=== PATIENT | male | born 1965 | race Caucasian/White ===

== ENCOUNTER 2017-04-02 20:14 | Inpatient (IN) | payer MEDICARE, MEDICAID ==
[~2017-04-02] VITALS: Ht 182.9 cm; Wt 112.0 kg
[2017-04-02] MEDS ORDERED: HALOPERIDOL LACTATE 5 MG/ML VIAL IM ONE (20:30)
[2017-04-02] MEDS ORDERED: LORazepam 2 MG/ML VIAL IM ONE (20:30)
[2017-04-02] MEDS ORDERED: DiphenhydrAMINE HCL 50 MG/ML VIAL IM ONE (20:30)
[2017-04-02 20:48] LABS: GLUCOSE,POINT OF CARE 156 MG/DL (70-110)
[2017-04-02 22:10] LABS: BASOPHILS % (AUTO) 0.2 % (0.0-2.0); EOSINOPHILS % (AUTO) 0.4 % (1.0-6.0); HEMATOCRIT 41.5 % (41-53); HEMOGLOBIN 14.1 g/dL (13.5-17.5); LYMPHOCYTES # (AUTO) 0.7 K/uL (1.0-4.8); LYMPHOCYTES % (AUTO) 6.7 % (22.0-44.0); MEAN CORPUSCULAR HEMOGLOBIN 30.7 pg (26.0-34.0); MEAN CORPUSCULAR HGB CONC 33.9 G/dL (31.0-37.0); MEAN CORPUSCULAR VOLUME 91 fL (80-100); MONOCYTES # (AUTO) 0.6 K/uL (0.1-1.0); MONOCYTES % (AUTO) 5.3 % (2.0-9.0); NEUTROPHILS # (AUTO) 9.8 K/uL (1.8-7.7); PLATELET COUNT (AUTO) 207 K/uL (150-450); RED BLOOD CELL COUNT(AUTO) 4.58 MIL/uL (4.50-5.90)
[2017-04-02 22:12] LABS: NEUTROPHILS % (AUTO) 87.4 % (40.0-70.0)
[2017-04-02 22:20] LABS: ANION GAP 11 mmol/L (8-16); CALCIUM, TOTAL 8.8 mg/dL (8.8-10.5); CARBON DIOXIDE 26 mmol/L (22-29); CHLORIDE 105 mmol/L (98-107); CREATININE 1.08 mg/dL (0.60-1.30); GLOMERULAR FILTR. RATE CALC > 60 mL/min (>60); GLUCOSE,RANDOM 152 mg/dL (70-110); POTASSIUM 3.3 mmol/L (3.5-5.1); SODIUM SERUM 142 mmol/L (136-145); UREA NITROGEN, BLOOD 15 mg/dL (7-18)
[2017-04-02 22:25] LABS: ALANINE AMINOTRANSFERASE 26 U/L (12-78); ALBUMIN 3.5 g/dL (3.4-5.0); ALKALINE PHOSPHATASE 57 U/L (46-116); ASPARTATE AMINOTRANSFERASE 31 U/L (15-37); BILIRUBIN,TOTAL 0.4 mg/dL (0.1-1.0); TOTAL PROTEIN, SERUM 6.5 g/dL (6.4-8.2)
[2017-04-02] MEDS ORDERED: HALOPERIDOL 5 MG TABLET PO PRN (23:45)
[2017-04-02] MEDS ORDERED: LORazepam 2 MG TABLET PO PRN (23:45)
[2017-04-02] MEDS ORDERED: ZOLPIDEM TARTRATE 10 MG TABLET PO PRN (23:45)
[2017-04-03] MEDS ORDERED: POTASSIUM CHLORIDE 10% 40 MEQ/30 ML LIQUID UDCUP PO ONE (01:15)
[2017-04-03 05:48] LABS: CHOL/HDL RATIO 2.9 (4.2-7.3); CHOLESTEROL 169 mg/dL (131-200); HDL CHOLESTEROL 59 mg/dL (40-60); LDL CHOL (CALC.) 88 mg/dL (0-130); TRIGLYCERIDES 111 mg/dL (15-150)
[2017-04-03 07:52] LABS: AMPHET/METH SCREEN,URINE NEGATIVE (NEGATIVE); BARBITURATE SCREEN, URINE NEGATIVE (NEGATIVE); BENZODIAZEPINES SCREEN,URINE NEGATIVE (NEGATIVE); CANNABINOID SCREEN,URINE NEGATIVE (NEGATIVE); COCAINE SCREEN,URINE NEGATIVE (NEGATIVE); METHADONE SCREEN, URINE NEGATIVE (NEGATIVE); OPIATE SCREEN,URINE NEGATIVE (NEGATIVE)
[2017-04-03 07:53] LABS: PHENCYCLIDINE SCREEN,URINE NEGATIVE (NEGATIVE)
[2017-04-03] MEDS ORDERED: LORazepam 2 MG/ML VIAL IM ONE (08:15)
[2017-04-03] MEDS ORDERED: DiphenhydrAMINE HCL 50 MG/ML VIAL IM ONE (08:15)
[2017-04-03] MEDS ORDERED: HALOPERIDOL LACTATE 5 MG/ML VIAL IM ONE (08:15)
[2017-04-04 00:53] VITALS: BP 138/79
[2017-04-04 08:08] VITALS: BP 123/64
[2017-04-04] MEDS: RisperiDONE 1 MG TABLET PO SCH ×2 (09:00→20:11)
[2017-04-04 16:00] VITALS: BP 136/88
[2017-04-05 02:23] VITALS: BP 138/90
[2017-04-05] MEDS: ACETAMINOPHEN 325 MG TABLET PO PRN ×3 (02:25→23:56)
[2017-04-05 08:13] LABS: ALANINE AMINOTRANSFERASE 43 U/L (12-78); ALKALINE PHOSPHATASE 67 U/L (46-116); ANION GAP 8 mmol/L (8-16); ASPARTATE AMINOTRANSFERASE 52 U/L (15-37); BILIRUBIN,TOTAL 0.6 mg/dL (0.1-1.0); CALCIUM, TOTAL 9.7 mg/dL (8.8-10.5); CARBON DIOXIDE 30 mmol/L (22-29); CHLORIDE 102 mmol/L (98-107); CREATININE 0.89 mg/dL (0.60-1.30); GLOMERULAR FILTR. RATE CALC > 60 mL/min (>60); GLUCOSE,RANDOM 122 mg/dL (70-110); POTASSIUM 3.7 mmol/L (3.5-5.1); SODIUM SERUM 140 mmol/L (136-145); TOTAL PROTEIN, SERUM 7.8 g/dL (6.4-8.2); UREA NITROGEN, BLOOD 18 mg/dL (7-18)
[2017-04-05 08:35] VITALS: BP 118/68
[2017-04-05] MEDS: RisperiDONE 1 MG TABLET PO SCH ×2 (09:00→20:23)
[2017-04-05 16:00] VITALS: BP 140/88
[2017-04-06 00:56] VITALS: BP 137/87
[2017-04-06 08:00] VITALS: BP 132/63
[2017-04-06] MEDS: RisperiDONE 1 MG TABLET PO SCH ×2 (09:00→21:00)
[2017-04-06 16:00] VITALS: BP 136/70
[2017-04-07 00:29] VITALS: BP 122/61
[2017-04-07 08:20] VITALS: BP 129/73
[2017-04-07 08:23] LABS: BASOPHILS % (AUTO) 0.5 % (0.0-2.0); EOSINOPHILS % (AUTO) 2.5 % (1.0-6.0); HEMATOCRIT 45.4 % (41-53); HEMOGLOBIN 15.5 g/dL (13.5-17.5); LYMPHOCYTES # (AUTO) 1.5 K/uL (1.0-4.8); LYMPHOCYTES % (AUTO) 22.3 % (22.0-44.0); MEAN CORPUSCULAR HEMOGLOBIN 31.3 pg (26.0-34.0); MEAN CORPUSCULAR HGB CONC 34.2 G/dL (31.0-37.0); MEAN CORPUSCULAR VOLUME 92 fL (80-100); MONOCYTES # (AUTO) 0.5 K/uL (0.1-1.0); NEUTROPHILS # (AUTO) 4.5 K/uL (1.8-7.7); NEUTROPHILS % (AUTO) 67.7 % (40.0-70.0); PLATELET COUNT (AUTO) 237 K/uL (150-450); RED BLOOD CELL COUNT(AUTO) 4.96 MIL/uL (4.50-5.90); RED CELL DISTRIBUTION WIDTH 13.1 % (11.5-14.5)
[2017-04-07] MEDS: RisperiDONE 1 MG TABLET PO SCH (09:00)
[2017-04-07 09:14] LABS: ALANINE AMINOTRANSFERASE 39 U/L (12-78); ALBUMIN 4.1 g/dL (3.4-5.0); ALKALINE PHOSPHATASE 65 U/L (46-116); ANION GAP 11 mmol/L (8-16); ASPARTATE AMINOTRANSFERASE 26 U/L (15-37); BILIRUBIN,TOTAL 0.9 mg/dL (0.1-1.0); CALCIUM, TOTAL 9.4 mg/dL (8.8-10.5); CARBON DIOXIDE 27 mmol/L (22-29); CHLORIDE 102 mmol/L (98-107); CREATINE KINASE MB 2.5 ng/mL (0-5); CREATINE KINASE, TOTAL 486 U/L (39-308); GLOMERULAR FILTR. RATE CALC > 60 mL/min (>60); GLUCOSE,RANDOM 172 mg/dL (70-110); POTASSIUM 4.3 mmol/L (3.5-5.1); SODIUM SERUM 140 mmol/L (136-145); TOTAL PROTEIN, SERUM 7.2 g/dL (6.4-8.2); UREA NITROGEN, BLOOD 18 mg/dL (7-18)
[2017-04-07] MEDS ORDERED: RISP1 PO (12:15)
== END 2017-04-07 14:30 | disposition home or self-care (01) | DRG 885 ==
LOC: EMS 20:15 → 3EI 04-03 21:53 → B3A 04-03 22:21
DX: F20.0 Paranoid schizophrenia (principal); M62.82 Rhabdomyolysis; D72.829 Elevated white blood cell count, unspecified; E87.6 Hypokalemia; R73.03 Prediabetes; F17.210 Nicotine dependence, cigarettes, uncomplicated; Z79.899 Other long term (current) drug therapy; Z78.1 Physical restraint status
CPT/HCPCS: 82962; 83036; 83735; 96372; 99285; G0480; J1200; J1630; J2060

== ENCOUNTER 2017-05-11 11:33 | Inpatient (IN) | payer MEDICARE, MEDICAID ==
[~2017-05-11] VITALS: Ht 182.9 cm; Wt 116.6 kg
[~2017-05-11 11:33] MED LIST: RISP1 PO
[2017-05-11] MEDS ORDERED: DiphenhydrAMINE HCL 50 MG/ML VIAL IM ONE (13:30)
[2017-05-11] MEDS ORDERED: LORazepam 2 MG/ML VIAL IM ONE (13:30)
[2017-05-11] MEDS ORDERED: HALOPERIDOL LACTATE 5 MG/ML VIAL IM ONE (13:30)
[2017-05-11 14:08] LABS: BASOPHILS % (AUTO) 0.6 % (0.0-2.0); EOSINOPHILS % (AUTO) 0.2 % (1.0-6.0); HEMATOCRIT 44.1 % (41-53); HEMOGLOBIN 15.1 g/dL (13.5-17.5); LYMPHOCYTES # (AUTO) 0.7 K/uL (1.0-4.8); LYMPHOCYTES % (AUTO) 10.7 % (22.0-44.0); MEAN CORPUSCULAR HEMOGLOBIN 31.1 pg (26.0-34.0); MEAN CORPUSCULAR HGB CONC 34.4 G/dL (31.0-37.0); MEAN CORPUSCULAR VOLUME 91 fL (80-100); MONOCYTES # (AUTO) 0.2 K/uL (0.1-1.0); MONOCYTES % (AUTO) 3.9 % (2.0-9.0); NEUTROPHILS # (AUTO) 5.4 K/uL (1.8-7.7); NEUTROPHILS % (AUTO) 84.6 % (40.0-70.0); PLATELET COUNT (AUTO) 211 K/uL (150-450); RED BLOOD CELL COUNT(AUTO) 4.86 MIL/uL (4.50-5.90); RED CELL DISTRIBUTION WIDTH 13.1 % (11.5-14.5)
[2017-05-11 14:15] LABS: ANION GAP 8 mmol/L (8-16); CALCIUM, TOTAL 9.3 mg/dL (8.8-10.5); CARBON DIOXIDE 25 mmol/L (22-29); CHLORIDE 100 mmol/L (98-107); CREATININE 0.91 mg/dL (0.60-1.30); GLOMERULAR FILTR. RATE CALC > 60 mL/min (>60); GLUCOSE,RANDOM 148 mg/dL (70-110); POTASSIUM 4.1 mmol/L (3.5-5.1); SODIUM SERUM 133 mmol/L (136-145); UREA NITROGEN, BLOOD 12 mg/dL (7-18)
[2017-05-11 14:21] LABS: ALANINE AMINOTRANSFERASE 21 U/L (12-78); ALBUMIN 4.1 g/dL (3.4-5.0); ALKALINE PHOSPHATASE 58 U/L (46-116); ASPARTATE AMINOTRANSFERASE 15 U/L (15-37); BILIRUBIN,TOTAL 0.4 mg/dL (0.1-1.0); TOTAL PROTEIN, SERUM 7.4 g/dL (6.4-8.2)
[2017-05-11 14:53] LABS: AMPHET/METH SCREEN,URINE NEGATIVE (NEGATIVE); BARBITURATE SCREEN, URINE NEGATIVE (NEGATIVE); BENZODIAZEPINES SCREEN,URINE NEGATIVE (NEGATIVE); CANNABINOID SCREEN,URINE NEGATIVE (NEGATIVE); COCAINE SCREEN,URINE NEGATIVE (NEGATIVE); METHADONE SCREEN, URINE NEGATIVE (NEGATIVE); OPIATE SCREEN,URINE NEGATIVE (NEGATIVE); PHENCYCLIDINE SCREEN,URINE NEGATIVE (NEGATIVE)
[2017-05-11] MEDS ORDERED: HALOPERIDOL 5 MG TABLET PO PRN (15:15)
[2017-05-11 16:11] LABS: CHOL/HDL RATIO 2.3 (4.2-7.3); CHOLESTEROL 165 mg/dL (131-200); FREE T4 (FREE THYROXINE) 0.91 ng/dL (0.76-1.46); HDL CHOLESTEROL 73 mg/dL (40-60); LDL CHOL (CALC.) 85 mg/dL (0-130); THYROID STIMULATING HORMONE 0.78 uIU/mL (0.36-3.74); TRIGLYCERIDES 36 mg/dL (15-150)
[2017-05-11] MEDS ORDERED: INFLUENZA VIRUS VACCINE QVS 2017-18 (3YR+)/PF 60 MCG/0.5 ML SYRINGE IM ONE (17:30)
[2017-05-11 19:59] VITALS: BP 142/82
[2017-05-12 02:40] VITALS: BP 141/84
[2017-05-12 16:00] VITALS: BP 136/83
[2017-05-12] MEDS: RisperiDONE 2 MG TABLET PO SCH (20:27)
[2017-05-13 05:56] VITALS: BP 124/66
[2017-05-13 08:06] LABS: BASOPHILS % (AUTO) 0.6 % (0.0-2.0); EOSINOPHILS % (AUTO) 1.7 % (1.0-6.0); HEMATOCRIT 45.1 % (41-53); HEMOGLOBIN 15.5 g/dL (13.5-17.5); LYMPHOCYTES # (AUTO) 1.6 K/uL (1.0-4.8); LYMPHOCYTES % (AUTO) 31.1 % (22.0-44.0); MEAN CORPUSCULAR HEMOGLOBIN 31.4 pg (26.0-34.0); MEAN CORPUSCULAR HGB CONC 34.5 G/dL (31.0-37.0); MEAN CORPUSCULAR VOLUME 91 fL (80-100); MONOCYTES # (AUTO) 0.4 K/uL (0.1-1.0); NEUTROPHILS % (AUTO) 58.6 % (40.0-70.0); PLATELET COUNT (AUTO) 226 K/uL (150-450); RED BLOOD CELL COUNT(AUTO) 4.94 MIL/uL (4.50-5.90)
[2017-05-13 08:16] VITALS: BP_SYST 108; BP_SYST 132; BP_DIAS 60; BP_DIAS 70
[2017-05-13 08:44] LABS: FOLATE SERUM 10.1 ng/mL (5.4-)
[2017-05-13] MEDS: RisperiDONE 2 MG TABLET PO SCH ×2 (08:46→20:36)
[2017-05-13 09:10] LABS: ALANINE AMINOTRANSFERASE 19 U/L (12-78); ALBUMIN 3.9 g/dL (3.4-5.0); ALKALINE PHOSPHATASE 57 U/L (46-116); ANION GAP 9 mmol/L (8-16); ASPARTATE AMINOTRANSFERASE 14 U/L (15-37); BILIRUBIN,TOTAL 0.4 mg/dL (0.1-1.0); CALCIUM, TOTAL 9.5 mg/dL (8.8-10.5); CARBON DIOXIDE 29 mmol/L (22-29); CHLORIDE 104 mmol/L (98-107); CHOL/HDL RATIO 2.7 (4.2-7.3); CHOLESTEROL 171 mg/dL (131-200); CREATINE KINASE MB 2.8 ng/mL (0-5); CREATINE KINASE, TOTAL 286 U/L (39-308); CREATININE 1.03 mg/dL (0.60-1.30); GLOMERULAR FILTR. RATE CALC > 60 mL/min (>60); GLUCOSE,RANDOM 124 mg/dL (70-110); HDL CHOLESTEROL 64 mg/dL (40-60); LDL CHOL (CALC.) 81 mg/dL (0-130); POTASSIUM 3.9 mmol/L (3.5-5.1); SODIUM SERUM 142 mmol/L (136-145); THYROID STIMULATING HORMONE 3.04 uIU/mL (0.36-3.74); TOTAL PROTEIN, SERUM 7.3 g/dL (6.4-8.2); TRIGLYCERIDES 131 mg/dL (15-150); UREA NITROGEN, BLOOD 15 mg/dL (7-18)
[2017-05-13] MEDS ORDERED: CloNIDine HCL 0.1 MG TABLET PO PRN (11:45)
[2017-05-13 16:17] VITALS: BP 133/69
[2017-05-14 06:08] VITALS: BP 130/81
[2017-05-14 08:24] VITALS: BP 127/71
[2017-05-14] MEDS: RisperiDONE 2 MG TABLET PO SCH ×2 (09:00→20:18)
[2017-05-14 16:00] VITALS: BP 134/76
[2017-05-15 06:11] VITALS: BP 128/79
[2017-05-15 08:04] VITALS: BP 130/80
[2017-05-15] MEDS: RisperiDONE 2 MG TABLET PO SCH ×2 (08:34→20:18)
[2017-05-15 16:00] VITALS: BP 129/77
[2017-05-15] MEDS: LORazepam 2 MG TABLET PO PRN (16:08)
[2017-05-15] MEDS: ZOLPIDEM TARTRATE 10 MG TABLET PO PRN (20:18)
[2017-05-16 07:29] VITALS: BP 125/78
[2017-05-16 08:06] VITALS: BP 122/74
[2017-05-16] MEDS: RisperiDONE 2 MG TABLET PO SCH ×2 (08:36→20:37)
[2017-05-16 16:00] VITALS: BP 134/67
[2017-05-16] MEDS: ZOLPIDEM TARTRATE 10 MG TABLET PO PRN (20:37)
[2017-05-17 08:04] VITALS: BP 122/66
[2017-05-17] MEDS: RisperiDONE 2 MG TABLET PO SCH ×2 (08:17→20:36)
[2017-05-17 16:00] VITALS: BP 140/82
[2017-05-17] MEDS: LORazepam 2 MG TABLET PO PRN (17:13)
[2017-05-17] MEDS: ZOLPIDEM TARTRATE 10 MG TABLET PO PRN (20:36)
[2017-05-18 04:27] VITALS: BP 119/68
[2017-05-18] MEDS: RisperiDONE 2 MG TABLET PO SCH ×2 (08:12→20:10)
[2017-05-18 08:18] VITALS: BP 140/87
[2017-05-18 16:04] VITALS: BP 127/70
[2017-05-18] MEDS: LORazepam 2 MG TABLET PO PRN (17:02)
[2017-05-18] MEDS: ZOLPIDEM TARTRATE 10 MG TABLET PO PRN (20:45)
[2017-05-19 08:05] VITALS: BP 124/76
[2017-05-19] MEDS: RisperiDONE 2 MG TABLET PO SCH ×2 (09:41→20:29)
[2017-05-19 16:00] VITALS: BP 138/71
[2017-05-19] MEDS: ZOLPIDEM TARTRATE 10 MG TABLET PO PRN (20:29)
[2017-05-20 05:40] VITALS: BP 134/76
[2017-05-20] MEDS: RisperiDONE 2 MG TABLET PO SCH (08:18)
[2017-05-20 08:23] VITALS: BP 126/68
[2017-05-20 08:53] LABS: BASOPHILS % (AUTO) 0.6 % (0.0-2.0); EOSINOPHILS % (AUTO) 1.9 % (1.0-6.0); HEMATOCRIT 43.6 % (41-53); HEMOGLOBIN 15.1 g/dL (13.5-17.5); LYMPHOCYTES # (AUTO) 1.4 K/uL (1.0-4.8); LYMPHOCYTES % (AUTO) 22.2 % (22.0-44.0); MEAN CORPUSCULAR HEMOGLOBIN 31.5 pg (26.0-34.0); MEAN CORPUSCULAR HGB CONC 34.7 G/dL (31.0-37.0); MEAN CORPUSCULAR VOLUME 91 fL (80-100); MONOCYTES # (AUTO) 0.5 K/uL (0.1-1.0); MONOCYTES % (AUTO) 7.2 % (2.0-9.0); NEUTROPHILS # (AUTO) 4.3 K/uL (1.8-7.7); NEUTROPHILS % (AUTO) 68.1 % (40.0-70.0); PLATELET COUNT (AUTO) 206 K/uL (150-450); RED CELL DISTRIBUTION WIDTH 13.1 % (11.5-14.5)
[2017-05-20 09:46] LABS: ALANINE AMINOTRANSFERASE 33 U/L (12-78); ALKALINE PHOSPHATASE 52 U/L (46-116); ANION GAP 6 mmol/L (8-16); ASPARTATE AMINOTRANSFERASE 11 U/L (15-37); BILIRUBIN,TOTAL 0.3 mg/dL (0.1-1.0); CALCIUM, TOTAL 9.2 mg/dL (8.8-10.5); CARBON DIOXIDE 29 mmol/L (22-29); CHLORIDE 103 mmol/L (98-107); CREATINE KINASE MB 1.3 ng/mL (0-5); CREATINE KINASE, TOTAL 78 U/L (39-308); CREATININE 0.88 mg/dL (0.60-1.30); GLOMERULAR FILTR. RATE CALC > 60 mL/min (>60); GLUCOSE,RANDOM 155 mg/dL (70-110); POTASSIUM 4.2 mmol/L (3.5-5.1); SODIUM SERUM 138 mmol/L (136-145); UREA NITROGEN, BLOOD 19 mg/dL (7-18)
[2017-05-20 09:47] LABS: ALBUMIN 3.7 g/dL (3.4-5.0); TOTAL PROTEIN, SERUM 6.7 g/dL (6.4-8.2)
[2017-05-20] MEDS ORDERED: RISP2 PO ×2 (10:44→10:53)
== END 2017-05-20 11:25 | disposition home or self-care (01) | DRG 885 ==
LOC: EMS 11:34 → B3A 15:48
DX: F20.0 Paranoid schizophrenia (principal); E87.1 Hypo-osmolality and hyponatremia; E55.9 Vitamin D deficiency, unspecified; I10 Essential (primary) hypertension; R73.03 Prediabetes; Z79.899 Other long term (current) drug therapy
CPT/HCPCS: 82306; 82607; 82746; 83735; 84439; 84443; 96372; 99285; G0480; J1200; J1630; J2060

== ENCOUNTER 2018-01-03 21:16 | Emergency (ER) | payer MEDICARE, OTHER ==
[~2018-01-03] VITALS: Ht 182.9 cm; Wt 100.0 kg
[~2018-01-03 21:16] MED LIST changes: -RISP1 PO; +RISP2 PO
[2018-01-03 22:34] LABS: BASOPHILS % (AUTO) 0.5 % (0.0-2.0); EOSINOPHILS % (AUTO) 0.7 % (1.0-6.0); HEMATOCRIT 42.4 % (41-53); LYMPHOCYTES # (AUTO) 0.8 K/uL (1.0-4.8); LYMPHOCYTES % (AUTO) 10.5 % (22.0-44.0); MEAN CORPUSCULAR HEMOGLOBIN 31.9 pg (26.0-34.0); MEAN CORPUSCULAR HGB CONC 35.3 G/dL (31.0-37.0); MEAN CORPUSCULAR VOLUME 90 fL (80-100); MONOCYTES # (AUTO) 0.4 K/uL (0.1-1.0); MONOCYTES % (AUTO) 4.8 % (2.0-9.0); NEUTROPHILS # (AUTO) 6.2 K/uL (1.8-7.7); NEUTROPHILS % (AUTO) 83.5 % (40.0-70.0); PLATELET COUNT (AUTO) 246 K/uL (150-450); RED BLOOD CELL COUNT(AUTO) 4.69 MIL/uL (4.50-5.90); RED CELL DISTRIBUTION WIDTH 12.8 % (11.5-14.5)
[2018-01-03 23:04] LABS: ANION GAP 10 mmol/L (8-16); CARBON DIOXIDE 26 mmol/L (22-29); CHLORIDE 105 mmol/L (98-107); CREATININE 1.06 mg/dL (0.60-1.30); GLOMERULAR FILTR. RATE CALC > 60 mL/min (>60); GLUCOSE,RANDOM 156 mg/dL (70-110); POTASSIUM 3.5 mmol/L (3.5-5.1); SODIUM SERUM 141 mmol/L (136-145); UREA NITROGEN, BLOOD 14 mg/dL (7-18)
[2018-01-03 23:09] LABS: ALANINE AMINOTRANSFERASE 33 U/L (12-78); ALBUMIN 4.1 g/dL (3.4-5.0); ALKALINE PHOSPHATASE 75 U/L (46-116); ASPARTATE AMINOTRANSFERASE 21 U/L (15-37); BILIRUBIN,TOTAL 0.4 mg/dL (0.1-1.0); TOTAL PROTEIN, SERUM 7.6 g/dL (6.4-8.2)
[2018-01-03 23:25] VITALS: BP 122/86
[2018-01-03 23:35] LABS: AMPHET/METH SCREEN,URINE NEGATIVE (NEGATIVE); BARBITURATE SCREEN, URINE NEGATIVE (NEGATIVE); BENZODIAZEPINES SCREEN,URINE NEGATIVE (NEGATIVE); CANNABINOID SCREEN,URINE NEGATIVE (NEGATIVE); COCAINE SCREEN,URINE NEGATIVE (NEGATIVE); METHADONE SCREEN, URINE NEGATIVE (NEGATIVE); OPIATE SCREEN,URINE NEGATIVE (NEGATIVE); PHENCYCLIDINE SCREEN,URINE NEGATIVE (NEGATIVE)
== END 2018-01-03 23:37 | disposition home or self-care (01) ==
LOC: EMS 21:16
DX: F20.9 Schizophrenia, unspecified (principal); Z79.899 Other long term (current) drug therapy
CPT/HCPCS: 36415; 80053; 80307; 85025; 99285; G0480

== ENCOUNTER 2019-11-26 14:24 | Emergency (ER) | payer MEDICARE, OTHER ==
[~2019-11-26] VITALS: Ht 190.5 cm; Wt 102.8 kg
[~2019-11-26 14:24] MED LIST changes: -RISP2 PO; +RISP2TAB23 PO
[2019-11-26] MEDS ORDERED: KETOROLAC TROMETHAMINE 30 MG/ML VIAL IM ONE (15:15)
[2019-11-26] MEDS ORDERED: PERTUSS(ACELL),DIPH,TET VAC/PF 0.5 ML VIAL IM ONE (15:15)
[2019-11-26] MEDS ORDERED: AMOX TR/POT CLAV 875 MG/125 MG TABLET PO ONE (15:30)
[2019-11-26 16:04] VITALS: BP 131/74
== END 2019-11-26 16:18 | disposition home or self-care (01) ==
LOC: EMS 14:26
DX: S61.422A Laceration with foreign body of left hand, initial encounter (principal); S61.531A Puncture wound without foreign body of right wrist, initial encounter; W25.XXXA Contact with sharp glass, initial encounter; Y93.89 Activity, other specified; Y92.89 Other specified places as the place of occurrence of the external cause; Y99.8 Other external cause status
CPT/HCPCS: 73110; 90471; 90715; 96372; 99284; J1885